=== PATIENT | male | born 1970 | race Two or more races ===

== ENCOUNTER 2017-09-04 03:44 | Emergency (ER) | payer OTHER ==
[~2017-09-04] VITALS: Ht 165.1 cm; Wt 76.2 kg
[2017-09-04] MEDS ORDERED: GLIPIZIDE5 MG (04:01)
[2017-09-04] MEDS ORDERED: MUPIROCIN22 GM TOP (05:13)
[2017-09-04] MEDS ORDERED: CEFUROXIME500 MG PO (05:13)
[2017-09-04] MEDS ORDERED: KETO10TA2 PO (05:13)
== END 2017-09-04 05:42 | disposition home or self-care (01) ==
LOC: ER 03:44
DX: S50.872A Other superficial bite of left forearm, initial encounter (principal); Y04.1XXA Assault by human bite, initial encounter; S00.33XA Contusion of nose, initial encounter; Y08.89XA Assault by other specified means, initial encounter; Y93.89 Activity, other specified; Y92.69 Other specified industrial and construction area as the place of occurrence of the external cause; Y99.8 Other external cause status